=== PATIENT | male | born 1955 | race Caucasian/White ===

== ENCOUNTER 2019-08-05 09:39 | Outpatient (CLI) | payer OTHER, SELFPAY ==
--- NOTE | 2019-08-05 09:57 | XR_ITS ---
WS: [id number] CHEST 2 VIEWS HISTORY: HYPOTHYROIDISM/EXPOSURE TO POTENTIALLY HAZARDOUS SUBSTANCES COMPARISON: None available. Lungs: Clear with no abnormality. No pleural effusion or pneumothorax. Cardiac size: Normal. Mediastinum/Aorta: Normal mediastinum. Bones: Normal. XR/XR chest 2V* [id number] IMPRESSION: Normal chest.
== END 2019-08-05 09:40 | disposition home or self-care (01) ==
LOC: RAD 09:46
PROVIDERS: Family Provider Family Medicine; PCP Family Medicine; Visit Provider Family Medicine
DX: E03.9 Hypothyroidism, unspecified (principal); Z77.29 Contact with and (suspected) exposure to other hazardous substances
CPT/HCPCS: 71046